=== PATIENT | female | born 1995 | race Caucasian/White ===

== ENCOUNTER 2021-02-12 06:31 | Emergency (ER) | payer BC ==
[2021-02-12] MEDS ORDERED: predniSONE 20 MG Tab PO ONE (07:08)
[2021-02-12] MEDS ORDERED: Cetirizine 10 MG Tab PO ONE (07:08)
[2021-02-12] MEDS ORDERED: diphenhydrAMINE 25 MG Cap PO ONE (07:09)
--- NOTE | 2021-02-12 07:15 | EDM.PDOC ---
ED HPI GENERAL MEDICAL PROBLEM - General Chief Complaint: Skin Complaint Stated Complaint: RT PINKY SWOLLEN Time Seen by Provider: 02/12/21 07:00 Source of Information: Reports: Patient, RN. Denies: Old Records History Limitations: Reports: No Limitations - History of Present Illness INITIAL COMMENTS - FREE TEXT/NARRATIVE: 25 yo female visiting from out of town went to bed about 0200h last night without issue. She awoke this morning with the R 5th finger very swollen and slightly reddened and a little itchy. Has a pHx of being very sensitive to insect bites. Is not diabetic. No fever. No involvement of any other areas. Has about a [address] to get back to where she is staying today. Onset: Today Onset Date: 02/12/21 Duration: Hour(s):, Constant Location: Reports: Upper Extremity, Right Quality: Reports: Dull Severity: Mild Improves with: Reports: None Worsens with: Reports: Other (unknown) Context: Reports: Other (See HPI) Associated Symptoms: Reports: No Other Symptoms Treatments [facility] NURSE: Reports: Other (see below) (none) Right Finger-Little Pain Score (Numeric/FACES): 2 - Related Data Allergies Allergy/AdvReac Type Severity Reaction Status Date / Time insect venom Allergy Rash Verified 02/12/21 06:49 Home Meds: Home Meds NK [No Known Home Meds] 02/12/21 [History] Past Medical History - Past Health History Medical/Surgical History: Denies Medical/Surgical History Social & Family History - Tobacco Use Tobacco Use Status *Q: Never Tobacco User - Caffeine Use Caffeine Use: Reports: Coffee - Recreational Drug Use Recreational Drug Use: No ED ROS GENERAL - Review of Systems Review Of Systems: See Below Constitutional: Reports: No Symptoms Respiratory: Reports: No Symptoms. Denies: Shortness of Breath, Wheezing, Cough Cardiovascular: Reports: No Symptoms Musculoskeletal: Reports: Hand Pain (R 5th finger is swollen with minimal erythema and no associated wounds. ) Skin: Reports: Pruritis (mild), Erythema (minimal). Denies: Rash, Wound, Urticaria Neurological: Reports: No Symptoms ED EXAM, SKIN/RASH Exam: See Below Exam Limited By: No Limitations General Appearance: Alert, WD/WN, No Apparent Distress Extremities: Pedal Edema (R 5th finger is swollen, minimally red, no rash or wound noted) Neurological: Alert, Oriented, CN II-XII Intact, Normal Cognition, No Motor/Sensory Deficits Psychiatric: Normal Affect, Normal Mood Skin: Warm, Dry, Intact, No Rash, Erythema (minimal redness of that R 5th finger, no hives). No: Normal Color Location, Skin: Upper Extremity, Right Associated features: Warmth (minimal), Induration. No: Tenderness, Lymphangitis Lymphatic: No Adenopathy Course - Vital Signs Last Recorded V/S: Last Vital Signs Temp 36.6 C 02/12/21 06:49 Pulse 88 02/12/21 06:49 Resp 14 02/12/21 06:49 BP 132/82 02/12/21 06:49 Pulse Ox 98 02/12/21 06:49 - Orders/Labs/Meds Orders: Active Orders 24 hr Category Date Time Status Cetirizine [ZyrTEC] Med 02/12/21 07:08 Once 10 mg PO ONETIME ONE diphenhydrAMINE [Benadryl] Med 02/12/21 07:09 Once 50 mg PO ONETIME ONE predniSONE Med 02/12/21 07:08 Once 20 mg PO ONETIME ONE Departure - Departure Time of Disposition: 07:15 Disposition: Home, Self-Care 01 Condition: Fair Clinical Impression: Reaction to insect bite - Discharge Information *PRESCRIPTION DRUG MONITORING PROGRAM REVIEWED*: Not Applicable *COPY OF PRESCRIPTION DRUG MONITORING REPORT IN PATIENT JUDITH: Not Applicable Referrals: PCP,None [Primary Care Provider] - Additional Instructions: Elevate your right hand above your heart. Take diphenhydramine 50 mg every 4 hrs today for continued symptoms. Return if worse. Sepsis Event Note (ED) - Evaluation Sepsis Screening Result: No Definite Risk - Focused Exam Vital Signs: Vital Signs Temp Pulse Resp BP Pulse Ox 02/12/21 06:49 36.6 C 88 14 132/82 98 - My Orders Last 24 Hours: My Active Orders 02/12/21 07:08 Cetirizine [ZyrTEC] 10 mg PO ONETIME ONE predniSONE 20 mg PO ONETIME ONE 02/12/21 07:09 diphenhydrAMINE [Benadryl] 50 mg PO ONETIME ONE - Assessment/Plan Last 24 Hours: My Active Orders 02/12/21 07:08 Cetirizine [ZyrTEC] 10 mg PO ONETIME ONE predniSONE 20 mg PO ONETIME ONE 02/12/21 07:09 diphenhydrAMINE [Benadryl] 50 mg PO ONETIME ONE
== END 2021-02-12 07:26 | disposition home or self-care (01) ==
LOC: JP.ED 06:31
DX: S60.466A Insect bite (nonvenomous) of right little finger, initial encounter (principal); W57.XXXA Bitten or stung by nonvenomous insect and other nonvenomous arthropods, initial encounter
CPT/HCPCS: 99283; A9270; J7512